=== PATIENT | female | born 1970 | race Caucasian/White ===

== ENCOUNTER 2019-03-31 14:55 | Outpatient (CLI) | payer OTHER ==
[~2019-03-31 14:55] MED LIST: BUPR-86 PO; CALC400T6 PO; IBUPROFEN PO; MELA3TAB56 PO; VITAMIN B12 PO
== END 2019-03-31 23:59 | disposition home or self-care (01) ==
LOC: CFH 14:55
PROVIDERS: ATTEND Obstetrics & Gynecology
DX: D25.9 Leiomyoma of uterus, unspecified (principal); N94.5 Secondary dysmenorrhea; F17.200 Nicotine dependence, unspecified, uncomplicated
CPT/HCPCS: 76830

== ENCOUNTER 2019-06-26 05:11 | Day surgery (SDC) | payer BC, OTHER ==
[~2019-06-26] VITALS: Ht 162.6 cm; Wt 68.2 kg
[2019-06-26 06:05] VITALS: BP 135/89
[2019-06-26] MEDS ORDERED: LEVO100T5 PO (06:14)
[2019-06-26] MEDS ORDERED: ALBU8.5H8 INH (06:14)
[2019-06-26] MEDS ORDERED: LACTATED RINGERS 1,000 ML IV SCH (06:14)
[2019-06-26] MEDS ORDERED: BUPIVACAINE/PF 0.25% ONE (06:26)
[2019-06-26] MEDS ORDERED: BUPIVACAINE/PF 0.5% ONE (06:26)
[2019-06-26] MEDS ORDERED: EPINEPHRINE 1 MG/ML, 1ML ONE (06:27)
[2019-06-26] MEDS ORDERED: SILVER NITRATE STICK TP ONE (06:27)
[2019-06-26 06:34] LABS: BASOPHILS # (AUTO) 0.04 x10^3/uL (0-0.1); BASOPHILS % (AUTO) 1 % (0-1); EOSINOPHILS # (AUTO) 0.26 x10^3/uL (0-0.4); EOSINOPHILS % (AUTO) 3 % (1-7); LYMPHOCYTES # (AUTO) 1.17 x10^3/uL (1-3.4); LYMPHOCYTES % (AUTO) 15 % (22-44); MD NO; MEAN CORPUSCULAR HEMOGLOBIN 31.1 pg (27.0-34.8); MEAN CORPUSCULAR HGB CONC 33.1 g/dL (32.4-35.8); MEAN CORPUSCULAR VOLUME 93.8 fL (80-100); MEAN PLATELET VOLUME 9.4 fL (7.4-10.4); MONOCYTES # (AUTO) 0.62 x10^3/uL (0.2-0.8); MONOCYTES % (AUTO) 8 % (2-9); NEUTROPHILS # (AUTO) 5.62 x10^3/uL (1.8-6.8); NEUTROPHILS % (AUTO) 73 % (42-75); PLATELET COUNT 281 x10^3/uL (130-400); RED BLOOD COUNT 4.28 x10^6/uL (3.82-5.3); RED CELL DISTRIBUTION WIDTH 13.1 % (9.6-15.2)
[2019-06-26 06:37] LABS: HCG UR SG >= 1.030 (1.003-1.030); MICROSCOPIC INDICATED
[2019-06-26] MEDS ORDERED: GABAPENTIN 300 MG CAPSULE ONE (06:38)
[2019-06-26] MEDS ORDERED: ACETAMINOPHEN 500 MG TABLET ONE (06:39)
[2019-06-26] MEDS ORDERED: CEFAZOLIN 1,000 MG ONE ×2 (06:42)
[2019-06-26] MEDS ORDERED: SODIUM CHLORIDE 0.9% PF 10ML ONE (06:42)
[2019-06-26] MEDS ORDERED: LIDOCAINE-MPF 2% ,5ML ONE (06:42)
[2019-06-26] MEDS ORDERED: FENTANYL PF 100 MCG/2ML ONE ×3 (06:42→07:53)
[2019-06-26] MEDS ORDERED: PROPOFOL 10 MG/ML, 20ML ONE (06:42)
[2019-06-26] MEDS ORDERED: MIDAZOLAM 1 MG/ML, 2ML ONE (06:42)
[2019-06-26 06:45] LABS: CULTURE INDICATED? NO
[2019-06-26 06:47] LABS: ALANINE AMINOTRANSFERASE 24 U/L (12-78); ALBUMIN 3.9 g/dL (3.4-5.0); ANION GAP 5 mmol/L (5-15); CALCIUM 8.5 mg/dL (8.5-10.1); CHLORIDE 107 mmol/L (98-107); CREATININE 0.99 mg/dL (0.55-1.02)
[2019-06-26 06:49] LABS: ALKALINE PHOSPHATASE 72 U/L (45-117); BILIRUBIN,TOTAL 0.5 mg/dL (0.2-1.0)
[2019-06-26] MEDS ORDERED: LABETALOL 5MG/ML, 20ML IV PRN (07:00)
[2019-06-26] MEDS ORDERED: EPHEDRINE 50 MG/ML, 1ML IVPush PRN (07:00)
[2019-06-26] MEDS ORDERED: MEPERIDINE/PF 25MG/ML,1ML IVPush PRN (07:00)
[2019-06-26] MEDS ORDERED: ACETAMINOPHEN 500 MG TABLET PO ONE (07:00)
[2019-06-26] MEDS ORDERED: GABAPENTIN 300 MG CAPSULE PO ONE (07:00)
[2019-06-26] MEDS ORDERED: hydrALAzine 20 MG/ML, 1ML IV PRN (07:00)
[2019-06-26] MEDS ORDERED: PROMETHAZINE 25 MG/ML, 1ML IV PRN (07:00)
[2019-06-26] MEDS ORDERED: HYDROmorphone 2 MG/ML, 1ML IVPush PRN (07:00)
[2019-06-26] MEDS ORDERED: ONDANSETRON 2MG/ML, 2ML IV PRN (07:00)
[2019-06-26] MEDS ORDERED: FENTANYL PF 100 MCG/2ML IV PRN (07:00)
[2019-06-26] MEDS ORDERED: OXYcodone 5 MG/5 ML ORAL.SOL UDC PO PRN (07:00)
[2019-06-26] MEDS ORDERED: ONDANSETRON 2MG/ML, 2ML ONE (07:02)
[2019-06-26] MEDS ORDERED: DEXAMETHASONE 4 MG/ML, 1ML ONE ×3 (07:02)
[2019-06-26] MEDS ORDERED: KETOROLAC 30 MG/1 ML ONE (07:02)
[2019-06-26] MEDS ORDERED: VASOPRESSIN 20 UNIT/ML, 1ML ONE (07:05)
[2019-06-26] MEDS ORDERED: OXYcodone 5 MG/5 ML ORAL.SOL UDC ONE (07:53)
== END 2019-06-26 09:40 | disposition home or self-care (01) ==
LOC: OUT 05:11
PROVIDERS: ATTEND Obstetrics & Gynecology
DX: N92.0 Excessive and frequent menstruation with regular cycle (principal); N94.6 Dysmenorrhea, unspecified; D25.9 Leiomyoma of uterus, unspecified; E03.9 Hypothyroidism, unspecified; F32.9 Major depressive disorder, single episode, unspecified; J45.909 Unspecified asthma, uncomplicated; F17.210 Nicotine dependence, cigarettes, uncomplicated; Z79.890 Hormone replacement therapy; Z79.899 Other long term (current) drug therapy
CPT/HCPCS: 36415; 58563; 80053; 81001; 81025; 85025; 88305; J0690; J1100; J1885; J2250; J2405; J2704; J3010; J7120; J0171; J3490